=== PATIENT | female | born 1965 | race Caucasian/White ===

== ENCOUNTER 2019-09-05 10:57 | Day surgery (SDC) | payer OTHER ==
[~2019-09-05] VITALS: Ht 170.2 cm; Wt 99.3 kg
[~2019-09-05 10:57] MED LIST: AMIT25 PO; OMEPRAZOLE20 MG PO
[2019-09-05] MEDS ORDERED: PRAZ5 PO (11:37)
[2019-09-05] MEDS ORDERED: ACYC200 PO (11:38)
[2019-09-05] MEDS ORDERED: ALLEGRA ALLERG180 MG PO (11:38)
--- NOTE | 2019-09-05 11:41 | NUR ---
09/05/19 1141 Tessa Meek 1ST IV ATTEMPT IN LFA UNSUCCESSFUL, STARTED BY ITALIA MORRISON 2ND IV ATTEMPT IN LH SUCCESSFUL, STARTED BY ITALIA JACINTO
== END 2019-09-05 16:20 | disposition home or self-care (01) ==
LOC: ORSCSDS 10:57
PROVIDERS: Orthopaedic Surgery
PROC: 0LU14JZ Supplement Right Shoulder Tendon with Synthetic Substitute, Percutaneous Endoscopic Approach (ICD-10-PCS; principal; 2019-09-05 12:30)
PROC: 0RNJ4ZZ Release Right Shoulder Joint, Percutaneous Endoscopic Approach (ICD-10-PCS; principal; 2019-09-05 12:30)
PROC: 0LS14ZZ Reposition Right Shoulder Tendon, Percutaneous Endoscopic Approach (ICD-10-PCS; principal; 2019-09-05 12:30)
PROC: 0LQ14ZZ Repair Right Shoulder Tendon, Percutaneous Endoscopic Approach (ICD-10-PCS; principal; 2019-09-05 12:30)
PROC: 0RBJ4ZZ Excision of Right Shoulder Joint, Percutaneous Endoscopic Approach (ICD-10-PCS; principal; 2019-09-05 12:30)
DX: M75.21 Bicipital tendinitis, right shoulder (principal); M75.31 Calcific tendinitis of right shoulder; M75.51 Bursitis of right shoulder; I10 Essential (primary) hypertension; F41.8 Other specified anxiety disorders; E66.9 Obesity, unspecified; Z68.34 Body mass index [BMI] 34.0-34.9, adult; Z79.899 Other long term (current) drug therapy; Z87.891 Personal history of nicotine dependence
CPT/HCPCS: C1713; J0171; J0690; J1100; J1885; J2250; J2405; J2704; J2795; J3010; J7120

== ENCOUNTER 2021-04-14 11:00 | Emergency (ER) | payer OTHER ==
[~2021-04-14] VITALS: Ht 170.2 cm; Wt 104.3 kg
[~2021-04-14 11:00] MED LIST changes: +ACYC200 PO; +ALLEGRA ALLERG180 MG PO; +PRAZ5 PO
[2021-04-14 11:43] LABS: BASOPHILS ABSOLUTE AUTO 0.04 K/mm3 (0.00-0.23); BASOPHILS PERCENT AUTO 1 % (0-2); EOSINOPHILS ABSOLUTE AUTO 0.16 K/mm3 (0.00-0.68); EOSINOPHILS PERCENT AUTO 3 % (0-6); Hematocrit 45.6 % (33.0-51.0); Hemoglobin 15.1 g/dL (11.5-16.0); IMMATURE GRAN ABSOLUTE AUTO 0.01 K/mm3 (0.00-0.10); IMMATURE GRAN PERCENT AUTO 0 % (0-1); LYMPHOCYTES PERCENT AUTO 34 % (21-46); MONOCYTES ABSOLUTE AUTO 0.32 K/mm3 (0.16-1.47); MONOCYTES PERCENT AUTO 6 % (4-13); Mean Corpuscular HGB 30.4 pg (26.0-34.0); Mean Corpuscular HGB Conc 33.1 g/dL (31.5-36.5); Mean Corpuscular Volume 92 fL (80-100); Mean Platelet Volume 9.6 fL (9.1-12.4); NEUTROPHILS PERCENT AUTO 56 % (41-73); Platelet Count 278 K/mm3 (150-400); RDW Coefficient Variation 12.5 % (11.7-14.2); RDW Standard Deviation 42.3 fL (35.1-46.3); Red Blood Cell Count 4.96 M/mm3 (3.80-5.20); White Blood Cell Count 5.53 K/mm3 (4.00-11.30)
[2021-04-14 11:44] LABS: Source, Urine Clean Catch
[2021-04-14 12:08] LABS: Appearance, Urine Clear (Clear); Bilirubin, Urine Neg (Neg); Blood, Urine Neg (Neg); Color, Urine Yellow (P-Yellow); Glucose Qualitative, Urine Neg (Neg); Ketones, Urine Neg (Neg); Leukocyte Esterase, Urine Neg (Neg); Nitrite, Urine Neg (Neg); Protein, Urine Neg (Neg); Specific Gravity, Urine 1.005 (1.003-1.022); Urobilinogen, Urine NORM (Normal)
[2021-04-14 12:16] LABS: Alanine Aminotransfer (ALT/SGP 53 U/L (12-78); Albumin, Blood 3.7 g/dL (3.4-5.0); Albumin/Globulin Ratio 0.9 (0.8-1.8); Alk Phos 48 U/L (50-136); Anion Gap 4 mmol/L (6-16); Aspartate Aminotrans (AST/SGOT 30 U/L (12-37); Bilirubin, Total 0.4 mg/dL (0.1-1.0); Blood Urea Nitrogen 12 mg/dL (8-24); Bun/Creatinine Ratio 14.6 (12.0-20.0); CO2, Blood 28 mmol/L (21-32); Calcium, Blood 9.3 mg/dL (8.5-10.1); Chloride, Blood 107 mmol/L (98-108); Creatinine, Blood 0.82 mg/dL (0.40-1.00); Globulin, Blood 4.2 g/dL (2.2-4.0); Glomerular Filtration Rate >60 (60-); Glucose, Blood 85 mg/dL (70-99); Potassium, Blood 4.1 mmol/L (3.5-5.5); Sodium, Blood 139 mmol/L (136-145); Total Protein, Blood 7.9 g/dL (6.4-8.2)
[2021-04-14] MEDS ORDERED: Flonase 0.05% N16 GM (15:58)
[2021-04-14] MEDS ORDERED: LEVOCETIRIZINE D5 MG PO (15:58)
[2021-04-14] MEDS ORDERED: LORA2 PO (15:59)
[2021-04-14] MEDS ORDERED: MONT10T (15:59)
[2021-04-14] MEDS ORDERED: LOSA25 PO (15:59)
[2021-04-14] MEDS ORDERED: SUCR1 PO (16:45)
== END 2021-04-14 17:22 | disposition home or self-care (01) ==
LOC: ER 11:00
PROVIDERS: Physician Assistant
DX: K29.90 Gastroduodenitis, unspecified, without bleeding (principal); K27.9 Peptic ulcer, site unspecified, unspecified as acute or chronic, without hemorrhage or perforation; Z88.5 Allergy status to narcotic agent; Z87.891 Personal history of nicotine dependence
CPT/HCPCS: 36415; 76705; 80053; 81003; 83690; 85025; 99284-25; A9270

== ENCOUNTER → 2021-05-20 | Outpatient (CLI) | payer OTHER ==
[~2021-05-20] MED LIST changes: +Flonase 0.05% N16 GM; +LEVOCETIRIZINE D5 MG PO; +LORA2 PO; +LOSA25 PO; +MONT10T; +SUCR1 PO
== END | disposition home or self-care (01) ==
LOC: LAB SHORT 13:25
DX: D07.2 Carcinoma in situ of vagina (principal)
CPT/HCPCS: 88305

== ENCOUNTER → 2021-05-20 | Outpatient (CLI) | payer OTHER ==
[2021-05-21 15:07] LABS: HPV 16 Negative (Negative); HPV 18 Negative (Negative); HPV OTHER HR TYPES Negative (Negative)
== END | disposition home or self-care (01) ==
LOC: LAB SHORT 11:48
PROVIDERS: Family Medicine
DX: Z01.419 Encounter for gynecological examination (general) (routine) without abnormal findings (principal)
CPT/HCPCS: 87624; G0123

== ENCOUNTER 2021-08-09 07:46 | Day surgery (SDC) | payer OTHER ==
[~2021-08-09] VITALS: Ht 170.2 cm; Wt 106.3 kg
[2021-08-09] MEDS ORDERED: Ativan1 MG PO (08:04)
--- NOTE | 2021-08-09 09:49 | NUR ---
08/09/21 0949 Radha Bishop NO PREOP ANTIBIOTICS ORDERED PER .
--- NOTE | 2021-08-09 10:51 | NUR ---
Patient up to Ambulate independently. Gait steady. Discharge instructions reviewed with patient. Patient verbalizes understanding. Copy given to patient to take home. Dressing to procedure site clean, DRY AND INTACT AT DISCHARGE AFTER CHANGING ORIGINAL DRESSING THAT PT WAS INCONTINENT ON. SMALL AMOUNT OF S/S DRAINAGE NOTED. Patient States Post-Procedure ride home has been arranged. Discharged via wheelchair to private car for ride home. STEVE BRITT RETURNED TO PATIENT.
== END 2021-08-09 22:55 | disposition home or self-care (01) ==
LOC: ORSCMMR 07:46 → ORD 09:30 → ORSCMMR 09:30
PROVIDERS: Obstetrics & Gynecology
PROC: 0UBM0ZZ Excision of Vulva, Open Approach (ICD-10-PCS; principal; 2021-08-09 09:30)
DX: R87.623 High grade squamous intraepithelial lesion on cytologic smear of vagina (HGSIL) (principal); I10 Essential (primary) hypertension; K21.9 Gastro-esophageal reflux disease without esophagitis; K76.0 Fatty (change of) liver, not elsewhere classified; E66.01 Morbid (severe) obesity due to excess calories; Z68.36 Body mass index [BMI] 36.0-36.9, adult; Z79.899 Other long term (current) drug therapy; F17.210 Nicotine dependence, cigarettes, uncomplicated
CPT/HCPCS: 88305; 88341; 88342; 93005; 93010; A9270; J0171; J1100; J1885; J2250; J2405; J2704; J3010; J7120

== ENCOUNTER 2022-01-27 08:26 | Day surgery (SDC) | payer OTHER ==
[~2022-01-27] VITALS: Ht 170.2 cm; Wt 104.9 kg
[~2022-01-27 08:26] MED LIST changes: +Ativan1 MG PO
[2022-01-27] MEDS ORDERED: LOSA50 PO (09:06)
[2022-01-27] MEDS ORDERED: MONT10T PO (09:07)
[2022-01-27] MEDS ORDERED: XYZAL5 MG PO (09:07)
--- NOTE | 2022-01-27 10:11 | NUR ---
01/27/22 1011 Juanis Morales 3 IV ATTEMPTS, FIRST BY RXD IN L FOREARM WAS NOT SUCCESSFUL, SECOND IN L AC BY KMB WAS NOT SUCCESSFUL, THIRD BY KMB IN R AC WAS SUCCESSFUL AND 15CC BLOOD DRAWN FROM SITE.
--- NOTE | 2022-01-27 11:13 | NUR ---
01/27/22 Bee3 Theresa Kraft PT TO PACU IN PAIN 06/20. PT MEDICATED WITH FENTANYL PER DR. KIM. WILL CONTINUE TO MONITOR. PT CRYING.
--- NOTE | 2022-01-27 11:35 | NUR ---
01/27/22 1135 Theresa Kraft PT TRANSFERED TO STEP DOWN VIA [facility] [place]. PT PAIN SLOWLY GETTING BETTER STATED BY PATIENT. PAIN MEDICATIONS ADMINISTERED FOR PAIN OF 05/21. PT TOLERATING SNACKS. PT TRANSFERED FROM GURNEY TO CHAIR WITH ASSISTANCE. PT VS WNL. PT CONVERSING AND FAMILY AT CHAIR SIDE. POLAR PACK ON CONTINOUS. WILL CONTINUE TO MONITOR.
== END 2022-01-27 13:01 | disposition home or self-care (01) ==
LOC: ORSCSDS 08:26
PROVIDERS: Orthopaedic Surgery
PROC: 0SQC4ZZ Repair Right Knee Joint, Percutaneous Endoscopic Approach (ICD-10-PCS; principal; 2022-01-27 09:45)
DX: S83.241A Other tear of medial meniscus, current injury, right knee, initial encounter (principal); M22.41 Chondromalacia patellae, right knee; I10 Essential (primary) hypertension; Z87.891 Personal history of nicotine dependence; K21.9 Gastro-esophageal reflux disease without esophagitis; K76.0 Fatty (change of) liver, not elsewhere classified; J45.909 Unspecified asthma, uncomplicated; G62.9 Polyneuropathy, unspecified; E66.9 Obesity, unspecified; Z68.36 Body mass index [BMI] 36.0-36.9, adult; Z79.899 Other long term (current) drug therapy
CPT/HCPCS: A9270; C1713; J0171; J0690; J1100; J1885; J2250; J2405; J2704; J3010; J7040; J7120

== ENCOUNTER 2022-07-19 07:48 | Day surgery (SDC) | payer OTHER ==
[~2022-07-19 07:48] MED LIST changes: +LOSA50 PO; +MONT10T PO; +XYZAL5 MG PO
--- NOTE | 2022-07-19 10:33 | NUR ---
07/19/22 1032 Lucas Hinson 1MG EPI ADDED TO EACH OF THE FIRST 3 BAGS OF LR PER ORDER FOR IRRIGATION AT [facility] BY DR BAKER.
== END 2022-07-19 11:48 | disposition home or self-care (01) ==
LOC: ORSCSDS 07:48
PROVIDERS: Orthopaedic Surgery
PROC: 0RCJ4ZZ Extirpation of Matter from Right Shoulder Joint, Percutaneous Endoscopic Approach (ICD-10-PCS; principal; 2022-07-19 09:15)
DX: M24.011 Loose body in right shoulder (principal); M87.9 Osteonecrosis, unspecified; I10 Essential (primary) hypertension; J45.909 Unspecified asthma, uncomplicated; Z87.891 Personal history of nicotine dependence; K21.9 Gastro-esophageal reflux disease without esophagitis; G62.9 Polyneuropathy, unspecified; E66.9 Obesity, unspecified; Z68.35 Body mass index [BMI] 35.0-35.9, adult; Z79.899 Other long term (current) drug therapy
CPT/HCPCS: J0171; J0690; J1100; J2250; J2405; J2704; J3010; J7120

== ENCOUNTER → 2022-11-29 | Outpatient (CLI) | payer OTHER ==
[2022-11-30 15:07] LABS: HPV 16 Negative (Negative); HPV 18 Negative (Negative); HPV OTHER HR TYPES Negative (Negative)
== END | disposition home or self-care (01) ==
LOC: LAB SHORT 14:33
PROVIDERS: Obstetrics & Gynecology
DX: Z01.419 Encounter for gynecological examination (general) (routine) without abnormal findings (principal)
CPT/HCPCS: 87624; G0145